=== PATIENT | female | born 1950 | race Caucasian/White ===

== ENCOUNTER 2018-03-15 05:32 | Outpatient (CLI) | payer SELFPAY | END 2018-03-15 23:59 | disposition home or self-care (01) | LOC: HW VAS 05:32 | DX: Z13.6 Encounter for screening for cardiovascular disorders (principal) ==

== ENCOUNTER 2018-04-06 02:05 | Outpatient (CLI) | payer SELFPAY ==
[2018-04-06 10:47] LABS: CHOL/HDL RATIO 3.39 (0.00-4.99)
[2018-04-06 10:51] LABS: HEMOGLOBIN A1C 6.1 % (4.5-6.2)
== END 2018-04-06 23:59 | disposition home or self-care (01) ==
LOC: HW HEART 02:05
DX: Z00.00 Encounter for general adult medical examination without abnormal findings (principal)
CPT/HCPCS: 36415

== ENCOUNTER 2019-05-06 19:32 | Emergency (ER) | payer MEDICARE, OTHER ==
[~2019-05-06] VITALS: Ht 165.1 cm; Wt 88.2 kg
[2019-05-06 20:43] LABS: CLARITY,URINE CLEAR (Clear); COLOR,URINE YELLOW (Yellow); GLUCOSE, URINE NEGATIVE (Neg); KETONES,URINE NEGATIVE (Neg); LEUKOCYTE ESTERASE ,URINE TRACE (Neg); NITRITES, URINE NEGATIVE (Neg); OCCULT BLOOD,URINE MODERATE (Neg); PH,URINE 5.5 (4.8-8.0); PROTEIN,URINE NEGATIVE (Neg); UROBILINOGEN,URINE 0.2 E.U/dL (0.2-1.0)
[2019-05-06 20:49] LABS: UA COLLECTION TYPE CLN CATCH MIDSTREAM
[2019-05-06 20:50] LABS: BACTERIA,URINE FEW /HPF (Neg); RBC,URINE 0-2 /HPF (0-2); SQUAMOUS EPITHELIAL CELL,UR FEW /LPF (FEW)
[2019-05-06] MEDS ORDERED: NITR100C6 PO (21:07)
[2019-05-06] MEDS ORDERED: PHEN-716 PO (21:07)
[2019-05-06 21:16] VITALS: BP 138/69
== END 2019-05-06 21:17 | disposition home or self-care (01) ==
LOC: ER 19:33
DX: N39.0 Urinary tract infection, site not specified (principal); M54.5 Low back pain; Z98.890 Other specified postprocedural states; Z88.2 Allergy status to sulfonamides; Z88.0 Allergy status to penicillin; Z88.8 Allergy status to other drugs, medicaments and biological substances; Z79.899 Other long term (current) drug therapy
CPT/HCPCS: 81001; 87088; 99283

== ENCOUNTER → 2021-06-22 | Outpatient (CLI) | payer SELFPAY ==
[~2021-06-22] MED LIST: NITR100C6 PO; PHEN-716 PO
== END | disposition home or self-care (01) ==
LOC: VAS 08:50
DX: Z13.6 Encounter for screening for cardiovascular disorders (principal)

== ENCOUNTER 2022-06-28 06:31 | Emergency (ER) | payer MEDICARE ==
[~2022-06-28] VITALS: Ht 170.2 cm; Wt 91.0 kg
[2022-06-28 07:31] LABS: EOSINOPHILS # (AUTO) 0.4 X10'3 (0-0.9); HEMOGLOBIN 14.9 g/dl (12.0-16.0); MEAN CORPUSCULAR HEMOGLOBIN 30.5 PG (27.0-31.0); MEAN CORPUSCULAR HGB CONC 33.9 g/dL (33.0-36.5); RED CELL DISTRIBUTION WIDTH 14.5 % (11.5-14.5)
[2022-06-28 07:33] LABS: BASOPHILS # (AUTO) 0.1 X10'3 (0-0.2); BASOPHILS % (AUTO) 1.5 % (0-1); HEMATOCRIT 43.9 % (35.0-45.0); LYMPHOCYTES # (AUTO) 2.7 X10'3 (1.1-4.8); LYMPHOCYTES % (AUTO) 43.5 % (21-51); MEAN CORPUSCULAR VOLUME 90.2 FL (78-98); MEAN PLATELET VOLUME 7.3 FL (7.4-10.4); MONOCYTES # (AUTO) 1.1 X10'3 (0-0.9); MONOCYTES % (AUTO) 17.2 % (2-12); NEUTROPHILS % (AUTO) 31.8 % (42-75); PLATELET COUNT 300 X10'3 (140-440); RED BLOOD COUNT 4.87 X10'6 (4.20-5.60); WHITE BLOOD COUNT 6.2 X10'3 (4.5-11.0)
[2022-06-28 07:48] LABS: ALANINE AMINOTRANSFERASE 24 U/L (12-78); ALBUMIN 3.7 G/DL (3.4-5.0); ALBUMIN/GLOBULIN RATIO 0.8 (1.1-1.5); ALKALINE PHOSPHATASE 96 IU/L (46-116); ANION GAP 10 (8-16); ASPARTATE AMINO TRANSFERASE 19 U/L (10-37); BILIRUBIN,TOTAL 0.6 MG/DL (0.1-1.0); BLOOD UREA NITROGEN 13 MG/DL (7-18); CHLORIDE 101 MMOL/L (99-107); CREATININE 0.93 MG/DL (0.40-0.90); GLUCOSE 136 MG/DL (70-104); POTASSIUM 3.7 MMOL/L (3.5-5.1); SODIUM 139 MMOL/L (135-145); TOTAL CARBON DIOXIDE 27.9 MMOL/L (24-32); TOTAL PROTEIN 8.1 G/DL (6.4-8.2); eGFR 60 ML/MIN
[2022-06-28] MEDS ORDERED: iohexol 350MG/ML 100ml bottle IV ONE (08:25)
[2022-06-28] MEDS ORDERED: ondansetron/PF 4mg/2ml inj IV ONE (09:55)
[2022-06-28] MEDS ORDERED: BUDE10.27 IH (12:24)
[2022-06-28 12:42] VITALS: BP 128/68
== END 2022-06-28 12:46 | disposition home or self-care (01) ==
LOC: ER 06:33
DX: U07.1 COVID-19 (principal); R06.02 Shortness of breath; I31.39 Other pericardial effusion (noninflammatory); R11.0 Nausea; R19.7 Diarrhea, unspecified; J02.9 Acute pharyngitis, unspecified; Z87.440 Personal history of urinary (tract) infections; Z88.0 Allergy status to penicillin; Z88.2 Allergy status to sulfonamides; Z88.8 Allergy status to other drugs, medicaments and biological substances; Z79.899 Other long term (current) drug therapy
CPT/HCPCS: 36415; 71045; 71275; 80053; 83880; 84484; 85025; 93005; 99285; J2405; J3490; Q9967

== ENCOUNTER 2025-04-22 14:24 | Emergency (ER) | payer MEDICARE ==
[~2025-04-22] VITALS: Ht 157.5 cm; Wt 76.0 kg
[~2025-04-22 14:24] MED LIST changes: +BUDE10.27 IH
[2025-04-22 14:27] VITALS: TEMP 98.4
[2025-04-22 16:08] LABS: LEUKOCYTE ESTERASE ,URINE SMALL (Neg); NITRITES, URINE NEGATIVE (Neg); OCCULT BLOOD,URINE SMALL (Neg)
[2025-04-22 16:18] LABS: UA COLLECTION TYPE CLN CATCH MIDSTREAM
[2025-04-22 16:19] LABS: SQUAMOUS EPITHELIAL CELL,UR FEW /LPF (FEW)
--- NOTE | 2025-04-22 16:51 | Physician Documentation ---
History of Present Illness ~ Chief Complaint: Extremity Swelling Stated Complaint: LEG SWELLING Time Seen by MD: 16:19 Primary Medical Doctor: Christy Mode of Arrival: POV HPI This is a 74-year-old female who presents with a 2-3 weeks of bilateral lower extremity edema worse with prolonged periods of standing or sitting, patient reports right worse than left. Patient reports that edema typically resolves after putting her feet up or after waking in the morning. Patient reports sym ptoms are not as severe as they normally are today. Patient reports no chest pain or shortness of breath. Patient reports no cardiac history. Patient reports no other acute symptoms or concerns. Patient reports that she contacted her primary care provider though due to the extended time until her appointment was directed to come to the emergency department. Tetanus witin 5 years: Yes Medication Reconciliation Allergies: Coded Allergies: Penicillins (Verified Allergy, Unknown, 04/22/25) Sulfa (Sulfonamide Antibiotics) (Verified Allergy, Unknown, 04/22/25) meperidine (Verified Allergy, Unknown, 04/22/25) promethazine (Verified Allergy, Unknown, 04/22/25) acetaminophen (Verified Adverse Reaction, Unknown, VOMITING, 04/22/25) hydrocodone (Verified Adverse Reaction, Unknown, VOMITING, 04/22/25) Scheduled Budesonide/Formoterol Fumarate (Budesonide-Formoterol 80-4.5), 2 PUFFS IH BID Nitrofurantoin Monohyd/M-Cryst (Macrobid 100 mg Capsule), 1 CAP PO Q12H Phenazopyridine HCl (Pyridium), 1 TAB PO Q8H Past Medical History Past Medical History: *ENT*, UTI Past Surgical History: noncontributory, other Alcohol Use: None Drug Use: none Lives with: Spouse Lives In: Home Review of Systems ROS As stated above in the HPI, otherwise all systems are reviewed and negative. Physical Exam Vital Signs: Temperature: 98.4, Source: Temporal, Heart Rate: 84, Respiratory Rate: 16, BP: 156/80, Pulse Oximetry: 95, Weight: 76.000 Oxygen Flow Rate: 0 Physical Exam VITALS: Reviewed and as above. GENERAL: Alert, nontoxic appearing, no apparent distress. RESPIRATORY: No increased work of breathing, no respiratory distress, speaking in full clear sentences, clear lung sounds in all clark CV: Regular rate and rhythm no murmur, no extremity edema, brisk capillary refill bilateral feet, pedal pulses intact bilateral feet MUSCULOSKELETAL: Mild tenderness to palpation to popliteal region of right calf otherwise no tenderness to lower extremities Progress Results/Orders Results/Orders Orders - JOSAFAT DELONG Vl Venous (04/22/25 16:31) Completed Orders - JOSAFAT DELONGP Vl Venous (04/22/25 16:31) Cbc/Diff (04/22/25 16:31) BMP (04/22/25 16:31) Vital Signs 04/22/25 04/22/25 04/22/25 04/22/25 14:27 14:45 14:52 17:25 Temp 98.4 Pulse 86 84 74 Resp 16 13 16 13 B/P (MAP) 175/79 156/80 (105) 173/77 (109) Pulse Ox 93 95 98 O2 Flow Rate 0 04/22/25 18:01 Pulse 67 Resp 13 B/P (MAP) 159/79 Pulse Ox 98 Laboratory Tests Test 04/22/25 15:47 04/22/25 17:16 Urine Specimen Description Cln catch midstream Urine Color Yellow Urine Clarity Clear Urine pH 6.0 Urine Specific [place] <=1.005 Urine Protein Negative Urine Glucose (UA) Negative Urine Ketones Negative Urine Occult Blood Small Urine Nitrite Negative Urine Bilirubin Negative Urine Urobilinogen 0.2 Urine Leukocyte Esterase Small H Urine RBC 3-10 Urine WBC 5-10 H Urine Squamous Epithelial Cells Few Urine Bacteria Few Urine Culture Indicated Indicated Volume Urine Centrifuged 10 ml Urine Comment White Blood Count 10.0 Red Blood Count 4.79 Hemoglobin 14.3 Hematocrit 43.6 Mean Corpuscular Volume 91.0 Mean Corpuscular Hemoglobin 29.9 Mean Corpuscular Hemoglobin Concent 32.8 L Red Cell Distribution Width 14.6 H Platelet Count 361 Mean Platelet Volume 7.4 Neutrophils (%) (Auto) 57.5 Lymphocytes (%) (Auto) 31.9 Monocytes (%) (Auto) 5.0 Eosinophils (%) (Auto) 4.7 Basophils (%) (Auto) 0.9 Neutrophils # (Auto) 5.7 Lymphocytes # (Auto) 3.2 Monocytes # (Auto) 0.5 Eosinophils # (Auto) 0.5 Basophils # (Auto) 0.1 CBC Comment Sodium Level 142 Potassium Level 3.7 Chloride Level 105 Carbon Dioxide Level 28.9 Anion Gap 8 Blood Urea Nitrogen 14 Creatinine 0.70 Estimated GFR/1.73 m2 82 BUN/Creatinine Ratio 20.0 Glucose Level 87 Calcium Level 9.3 Albumin 3.7 Chemistry Comments Microbiology Date/Time Source Procedure Growth Status 04/22/25 16:19 Urine Clean Catch Midstream Urine Culture - Preliminary Culture received. Resulted EKG/XRAY/CT/US/VASC/MRI Vascular : Impression Lower Extremity Duplex Doppler Reflux Study Date: 04/22/2025 04:52 PM Clinical History: Swelling Comparison: None Findings: Duplex Doppler evaluation including color Doppler and spectral/pulsed waveform analysis of the deep and superficial veins of the lower extremities was performed for evaluation of reflux using tilt table technique and Valsalva and augmentation maneuvers. Reflux is defined as lasting greater than one second for the purposes of this ex amination. RIGHT: Common femoral vein - no reflux seen Deep femoral vein - no reflux seen Femoral vein - no reflux seen Popliteal vein - no reflux seen Great saphenous vein above knee at thigh levels - no reflux seen Great saphenous vein below knee at calf levels - no reflux seen LEFT: Common femoral vein - no reflux seen Deep femoral vein - no reflux seen Femoral vein - no reflux seen Popliteal vein - no reflux seen Great saphenous vein above knee at thigh levels - no reflux seen Great saphenous vein below knee at calf levels - no reflux seen IMPRESSION: 1. No evidence for lower extremity venous reflux. 2. No scintigraphic evidence of deep venous thrombosis. Dictated by:RHONDA SOLITARIO MD Dictation date and time:04/22/251743 Electronically Signed by: RHONDA SOLITARIO MD Date and Time: 04/22/251743 Transcribed: [facility] Medical Decision Making Findings This 74-year-old female presented with concern for bilateral lower extremity edema that resolves with elevating her feet and increases with prolonged sitting or standing, on physical exam lower extremity edema was not present. Due to mild popliteal calf tenderness a vascular ultrasound was ordered for evaluation of possible DVT though this vascular study was negative. Labs did not demonstrate evidence of metabolic or electrolyte derangement. Bilateral lower extremities neurovascularly intact. Patient was otherwise well-appearing in is reassuring she reports no chest pain or shortness of breath. Physical exam karen gn and patient appropriate for outpatient follow up with the primary care. Follow up instructions, home care instructions, and return to care precautions discussed with the patient who verbalized understanding. General Diff Dx:Considerations: Include: Neurovascular injury, Other (DVT, CHF, cellulitis,) Departure Time of Disposition: 17:56 Disposition: 01 HOME / SELF CARE / HOMELESS Impression: Primary Impression: Edema of lower extremity Condition: Improved Discharge Instructions: Edema Additional Instructions: Your ultrasound and lab work was reassuring, please follow up with your primary care provider about your continued swallowing your legs. I recommend elevating your legs when possible. Please follow up with your primary care provider in the next few days. Please return to the emergency department for any new or worsening concerning symptoms including but not limited to shortness of breath or chest pain. Referrals: NO PRIMARY CARE PROVIDER (PCP) Education Educated: Patient Educated regarding: diagnosis, treatment, prognosis, need for follow up Signature Scribe Signature: No scribe Attestation: The note accurately reflects work and decisions made by me.CARLO Monroe 04/22/25 19:42 JOSAFAT DELONG Apr 22, 2025 16:51
[2025-04-22 17:36] LABS: MEAN PLATELET VOLUME 7.4 FL (7.4-10.4); RED CELL DISTRIBUTION WIDTH 14.6 % (11.5-14.5)
--- NOTE | 2025-04-22 17:46 | VASCULAR REPORT ---
Lower Extremity Duplex Doppler Reflux Study Date: 04/22/2025 04:52 PM Clinical History: Swelling Comparison: None Findings: Duplex Doppler evaluation including color Doppler and spectral/pulsed waveform analysis of the deep a nd superficial veins of the lower extremities was performed for evaluation of reflux using tilt table technique and Valsalva and augmentation maneuvers. Reflux is defined as lasting greater than one second for the purposes of this examination. RIGHT: Common femoral vein - no reflux seen Deep femoral vein - no reflux seen Femoral vein - no reflux seen Popliteal vein - no reflux seen Great saphenous vein above knee at thigh levels - no reflux seen Great saphenous vein below knee at calf levels - no reflux seen LEFT: Common femoral vein - no reflux seen Deep femoral vein - no reflux seen Femoral vein - no reflux seen Popliteal vein - no reflux seen Great saphenous vein above knee at thigh levels - no reflux seen Great saphenous vein below knee at calf levels - no reflux seen IMPRESSION: 1. No evidence for lower extremity venous reflux. 2. No scintigraphic evidence of deep venous thrombosis.
[2025-04-22 17:53] LABS: CREATININE 0.70 MG/DL (0.40-0.90); TOTAL CARBON DIOXIDE 28.9 MMOL/L (24-32); eCRCL 57 ML/MIN; eGFR 82 ML/MIN
[2025-04-22 18:01] VITALS: BP 159/79; PULSE 67; RESP 13; O2SAT 98
== END 2025-04-22 18:11 | disposition home or self-care (01) ==
LOC: ER 14:25
DX: R60.0 Localized edema (principal); Z88.0 Allergy status to penicillin; Z88.2 Allergy status to sulfonamides; Z88.5 Allergy status to narcotic agent; Z79.899 Other long term (current) drug therapy
CPT/HCPCS: 36415; 80048; 81001; 85025; 87088; 93971; 99284